=== PATIENT | female | born 1985 | race Caucasian/White ===

== ENCOUNTER → 2018-06-06 | Outpatient (CLI) | payer OTHER ==
[2018-06-06 13:51] LABS: BASOPHILS # (AUTO) 0.1 10^3/uL (0.0-0.1); BASOPHILS % (AUTO) 2.1 %; EOSINOPHILS # (AUTO) 0.2 10^3/uL (0.0-0.7); EOSINOPHILS % (AUTO) 3.8 %; HGB - HEMOGLOBIN 14.2 g/dL (12.0-16.0); LYMPHOCYTES # (AUTO) 1.3 10^3/uL (1.5-3.5); LYMPHOCYTES % (AUTO) 30.7 %; MEAN CORPUSCULAR HEMOGLOBIN 32.2 pg (27.0-31.0); MEAN CORPUSCULAR HGB CONC 34.1 g/dL (32.0-36.0); MEAN CORPUSCULAR VOLUME 94.4 fL (81.0-99.0); MEAN PLATELET VOLUME 8.4 fL (7.9-10.8); MONOCYTES # (AUTO) 0.4 10^3/uL (0.0-1.0); MONOCYTES % (AUTO) 9.8 %; NEUTROPHILS # (AUTO) 2.3 10^3/uL (1.5-6.6); NEUTROPHILS % (AUTO) 53.6 %; PLT - PLATELET COUNT 307 10^3/uL (130-450); RED BLOOD COUNT 4.41 10^6/uL (4.20-5.40); RED CELL DISTRIBUTION WIDTH 12.4 % (12.0-15.0); WHITE BLOOD COUNT 4.3 x10^3/uL (4.8-10.8)
[2018-06-06 14:13] LABS: THYROID STIMULATING HORMONE 1.27 uIU/mL (0.34-5.60)
[2018-06-06 14:15] LABS: HB2 TOTAL 15.2 g/dL; HEMOGLOBIN A1C 0.49 g/dL; HEMOGLOBIN A1C % 5.1 % (4.6-6.2)
[2018-06-06 14:16] LABS: ALBUMIN 4.5 g/dL (3.2-5.5); ALBUMIN/GLOBULIN RATIO 1.5 (1.0-2.2); ALKALINE PHOSPHATASE 64 IU/L (42-121); ALT ALANINE AMINOTRANSFERASE 19 IU/L (10-60); AST ASPARTATE AMINOTRANSFERASE 21 IU/L (10-42); BUN - BLOOD UREA NITROGEN 12 mg/dL (6-20); CALCIUM 9.1 mg/dL (8.5-10.3); CARBON DIOXIDE - CO2 25 mmol/L (21-32); CHLORIDE 105 mmol/L (101-111); CHOL/HDL RATIO 3.7 (<4.4); CHOLESTEROL 150 mg/dL; CREATININE 0.8 mg/dL (0.4-1.0); GFR - MDRD 84 (>89); GLUCOSE 96 mg/dL (70-100); HDL CHOLESTEROL 41 mg/dL; LDL CHOLESTEROL,CALCULATED 97 mg/dL; LDL/HDL RATIO 2.4 (<4.4); SODIUM 138 mmol/L (135-145); TOTAL PROTEIN 7.6 g/dL (6.7-8.2); VLDL CHOLESTEROL 12 mg/dL
== END ==
LOC: LAB.WCP 09:42
PROVIDERS: ATTEND Family Medicine
DX: Z13.1 Encounter for screening for diabetes mellitus (principal); F41.8 Other specified anxiety disorders; R53.83 Other fatigue; Z13.220 Encounter for screening for lipoid disorders
CPT/HCPCS: 36415; 80053; 80061; 82306; 82607; 82746; 83036; 83721; 84443; 85025

== ENCOUNTER 2019-06-30 12:46 | Outpatient (CLI) | payer OTHER ==
--- NOTE | 2019-07-01 17:29 | XRAY Report ---
Reason: Lumbar radiculopathy Procedure Date: 06/30/2019 Accession Number: [id number] / [id number] Procedure: XRN - SI Joints CPT Code: FULL RESULT: EXAM: SACROILIAC JOINT RADIOGRAPHY EXAM DATE: 06/30/2019 01:30 PM. CLINICAL HISTORY: Lumbar radiculopathy. COMPARISON: LUMBAR SPINE COMPLETE 06/30/2019 1:13 PM. TECHNIQUE: 3 views. FINDINGS: Bones: Normal. No fracture or bone lesion. Joints: The sacroiliac joints are normal. Soft Tissues: Normal. IMPRESSION: Normal sacroiliac joint radiography. [facility]
--- NOTE | 2019-07-01 17:29 | XRAY Report ---
Reason: SHOULDER PAIN Procedure Date: 06/30/2019 Accession Number: [id number] / [id number] Procedure: XRN - Shoulder 2 View RT CPT Code: FULL RESULT: EXAM: RIGHT SHOULDER RADIOGRAPHY EXAM DATE: 06/30/2019 01:30 PM. CLINICAL HISTORY: Shoulder pain. COMPARISON: None. TECHNIQUE: 2 views. FINDINGS: Bones: Normal. No fracture or bone lesion. Joints: The glenohumeral and acromioclavicular joints are normal. Soft tissues: The visualized hemithorax is unremarkable. No soft tissue swelling. IMPRESSION: Normal shoulder radiography. [facility]
--- NOTE | 2019-07-01 17:30 | XRAY Report ---
Reason: JOINT PAIN Procedure Date: 06/30/2019 Accession Number: [id number] / [id number] Procedure: XRN - Lumbar Spine Complete CPT Code: FULL RESULT: EXAM: LUMBOSACRAL SPINE RADIOGRAPHY EXAM DATE: 06/30/2019 01:30 PM. CLINICAL HISTORY: JOINT PAIN. COMPARISONS: None. TECHNIQUE: 5 views. FINDINGS: Alignment: Minimal less than 10 degrees upper lumbar dextrocurvature, partially visualized. No listhesis. Bones: Five [id number]-qvyprbb lumbar vertebral bodies are present. No fractures or bone lesions. Disks: Normal. Disk heights are maintained. Facets: No degenerative changes. Sacroiliac Joints: Unremarkable. Soft Tissues: Normal. The visualized bowel gas pattern is normal. IMPRESSION: 1. Minimal less than 10 degree upper lumbar dextrocurvature. 2. Otherwise normal-appearing lumbar spine exam. [facility]
== END 2019-06-30 12:47 | disposition home or self-care (01) ==
LOC: DI.N 12:46
PROVIDERS: ATTEND Family Medicine
DX: M54.16 Radiculopathy, lumbar region (principal); M25.511 Pain in right shoulder; M41.9 Scoliosis, unspecified
CPT/HCPCS: 72110; 72202

== ENCOUNTER 2019-07-14 07:06 | Outpatient (CLI) | payer OTHER ==
--- NOTE | 2019-07-14 10:51 | MRI Report ---
Reason: LUMBAR RADICULOPATHY Procedure Date: 07/14/2019 Accession Number: [id number] / [id number] Procedure: MRI - Lumbar Spine W/O CPT Code: FULL RESULT: MRI LUMBAR SPINE WITHOUT CONTRAST INDICATION: 33-year-old female. Chronic low back pain. Right hip and leg pain. TECHNIQUE: 1. Sagittal STIR, T1 and T2. 2. Axial T1 and T2. COMPARISON: None. FINDINGS: Radiographs(06/30/2019) have been reviewed, confirmed the presence of 5 [id number]-[id number] lumbar type vertebrae. Vertebral alignment is essentially normal. The lumbar disks are well hydrated and the disk space heights are maintained throughout. The marrow signal intensity appears normal throughout. There appears to be minor lipomatous change in the distal filum. However, there is no abnormal thickening of the filum and the conus terminates in appropriate fashion at the upper L1 level. Therefore, the possibility of spinal cord tethering is considered extremely unlikely. Axial images: T12-L1: No disk herniation. No spinal canal or foraminal stenosis. L1-L2: No disk herniation. No spinal canal or foraminal stenosis. L2-L3: No disk herniation. No spinal canal or foraminal stenosis. L3-L4: No disk herniation. No spinal canal or foraminal stenosis. L4-L5: No disk herniation. Suspect mild degenerative facet arthrosis. No bony hypertrophy. No spinal canal or foraminal stenosis. L5-S1: No disk herniation. Degenerative facet arthrosis with minimal bony hypertrophy. No spinal canal or foraminal stenosis. IMPRESSION: 1. There appears to be mild degenerative facet arthrosis in the lower lumbar spine (see above). There is no significant associated bony hypertrophy. 2. Otherwise unremarkable, unenhanced lumbar spine MRI. In particular, there is no evidence of disk herniation, spinal stenosis or neural impingement. Comment: No potential etiology for right hip and leg pain has been demonstrated.
== END 2019-07-14 07:07 | disposition home or self-care (01) ==
LOC: DI 07:06
PROVIDERS: ATTEND Family Medicine
DX: M54.16 Radiculopathy, lumbar region (principal)
CPT/HCPCS: 72148

== ENCOUNTER 2019-08-19 09:00 | Outpatient (CLI) | payer OTHER ==
--- NOTE | 2019-08-19 09:20 | XRAY Report ---
Reason: RT HIP PAIN Procedure Date: 08/19/2019 Accession Number: [id number] / [id number] Procedure: XRN - Hip w/Pelvis 2-3V RT CPT Code: FULL RESULT: EXAM: RIGHT HIP RADIOGRAPHY EXAM DATE: 08/19/2019 09:10 AM. CLINICAL HISTORY: RT HIP PAIN. COMPARISON: SACROILIAC JOINTS 06/30/2019 1:33 PM. TECHNIQUE: 2 views. FINDINGS: Bones: Normal. No fractures or bone lesion. Joints: Normal. No dislocation. The hip joint space is preserved. Soft Tissues: Normal. No soft tissue swelling. IMPRESSION: Normal hip radiography. [facility]
== END 2019-08-19 09:01 | disposition home or self-care (01) ==
LOC: DI.N 09:00
PROVIDERS: ATTEND Physician Assistant Medical
DX: M25.551 Pain in right hip (principal)

== ENCOUNTER 2019-09-14 21:49 | Emergency (ER) | payer OTHER ==
[2019-09-14 22:09] VITALS: BP 124/81
--- NOTE | 2019-09-14 22:44 | ED Physician Documentation ---
History of Present Illness - Stated complaint Stated Complaint: HIVES/RASH - Chief complaint Chief Complaint: Wound - Additonal information Additional information: This is a 33-year-old female presents with hives. Patient started two new anti- anxiety medications BuSpar and Wellbutrin around 10 days ago, and yesterday she began developing hives over her body. She will have some raised red red wheals over one part of her body which will grow and then fade, and she will have new lesions appear nearby. These have involved her legs, her arms, and the back of her neck. She has been very itchy despite taking 50 mg of Benadryl every 4-6 ho urs. She is also tried taking an Aveeno bath, this is not helped. Hydrocortisone cream gives her temporary relief but then her itching resumes. She denies any new allergic exposures, No new foods, detergents, soaps. Her medications are the only thing that have changed. Review of Systems Constitutional: denies: Fever Throat: denies: Oral lesions / sores Skin: reports: Rash PD PAST MEDICAL HISTORY - Past Medical History Musculoskeletal: Other (Arthritis) - Present Medications Home Medications: Ambulatory Orders Medication Instructions Recorded Confirmed Bupropion HCl [Wellbutrin Xl] 300 mg PO 09/14/19 busPIRone [Buspar] 10 mg PO BID 09/14/19 09/14/19 predniSONE [Prednisone] 40 mg PO DAILY #10 tablet 09/14/19 - Allergies Allergies/Adverse Reactions: Allergies Allergy/AdvReac Type Severity Reaction Status Date / Time pm medications Allergy Hives Uncoded 09/14/19 22:09 - Living Situation Living Situation: reports: With family Living Arrangement: reports: At home - Family History Family history: reports: Non contributory PD ED PE NORMAL - Vitals Vital signs reviewed: Yes - General General: Alert and oriented X 3 - HEENT HEENT: Other (Normal oropharynx without lesions, no swelling of the tongue or lips.) - Cardiac Cardiac: RRR - Respiratory Respiratory: No respiratory distress - Abdomen Abdomen: Normal bowel sounds, Soft, Non tender, Non distended - Derm Derm: Other (Over the extremities and the base the neck there are scattered raised erythematous wheals, these vary in size from 0.5cm to 5 cm in diameter, the edges are somewhat serpiginous. There are no blisters, areas of necrosis, or petechiae. The redness is blanchable.) - Neuro Neuro: Alert and oriented X 3 - Psych Psych: Normal mood, Normal affect Results - Vitals Vitals: Vital Signs - 24 hr 09/14/19 22:06 Temperature 36.8 C Heart Rate 95 Respiratory 18 Rate Blood Pressure 124/81 H O2 Saturation 99 Oxygen O2 Source Room air PD MEDICAL DECISION MAKING - ED course Complexity details: considered differential (Allergic reaction, urticaria, contact dermatitis, medication side effect) ED course: Patient presents with a classic case of urticaria, this appears to have started in response to new medication, and she has no other environmental exposures or changes to foods or detergents. She has no signs of mucous membrane involvement, airway compromise, or more serious illness as a cause of her rash at this time. Her vital signs are unremarkable. Given that she is refractory to benadryl we will treat with a burst of steroids, first dose of prednisone was given here. I discussed care with continued Benadryl, the prednisone, topical hydrocortisone cream if desired, and I also recommended close follow-up with her primary care provider. I also recommend that she stop her new medications. I discussed return precautions including fever, painful lesions, involvement of her mouth or mucous membranes, or any other concerning symptoms. Patient agreed with this plan and was discharged home. Departure - Departure Disposition: 01 Home, Self Care Clinical Impression: Urticaria Condition: Good Instructions: Urticaria Follow-Up: Aidan Stoddard PA-C [Primary Care Provider] - Within 1 week Prescriptions: predniSONE [Prednisone] 40 mg PO DAILY #10 tablet Comments: You were seen today for urticaria/hives. This is likely a reaction to your new medications, I recommend stopping these medications and considering restarting your Cymbalta. You can continue to take Benadryl 50 mg every 4-6 hours as needed for itching. You may also take the prednisone for the next 5 days as prescribed. If you develop any swelling of your lips or tongue, difficulty breathing, or rash with blisters or lesions in your mouth or mucous membranes, please return to the emergency department, as this is signs of a serious allergic reaction. Otherwise please follow-up with your primary care provider. Discharge Date/Time: 09/14/19 23:14
[2019-09-14] MEDS ORDERED: predniSONE 20 MG TABLET PO STA (23:03)
== END 2019-09-14 23:14 | disposition home or self-care (01) ==
LOC: ED 21:49
DX: L50.9 Urticaria, unspecified (principal)
CPT/HCPCS: 99282; 99284; J7512

== ENCOUNTER 2019-12-19 21:45 | Emergency (ER) | payer OTHER ==
--- NOTE | 2019-12-19 22:04 | ED Physician Documentation ---
History of Present Illness - Stated complaint Stated Complaint: ABD/BACK PAIN, RASH ON NECK AND ARMS - Chief complaint Chief Complaint: Abd Pain - History obtained from History obtained from: Patient (Patient is a 34-year-old female who presents with what she is describing is severe epigastric pain that radiates to her back without syncope she reports she will have episodes with the last about 2 hours she denies having any previous similar episodes. She did not denies any dark urine flank pain or hematuria or any jaundice-like symptoms.She denies any fevers chills or night sweats she denies any diarrhea or constipation.Patient reports that her pain is worse after eating. The patient also reports a mild rash without shortness of breath or any facial swelling.), Friend Review of Systems Constitutional: reports: Reviewed and negative Eyes: reports: Reviewed and negative Ears: reports: Reviewed and negative Nose: reports: Reviewed and negative Throat: reports: Reviewed and negative Cardiac: reports: Reviewed and negative Respiratory: reports: Reviewed and negative GI: reports: Abdominal Pain, Nausea, Vomiting : reports: Reviewed and negative Skin: reports: Rash Musculoskeletal: reports: Reviewed and negative Neurologic: reports: Reviewed and negative Psychiatric: reports: Reviewed and negative Endocrine: reports: Reviewed and negative Immunocompromised: reports: Reviewed and negative PD PAST MEDICAL HISTORY - Past Medical History Psych: Anxiety Musculoskeletal: Other (Arthritis) - Past Surgical History Past Surgical History: Yes - Present Medications Home Medications: Ambulatory Orders Medication Instructions Recorded Confirmed DULoxetine [Cymbalta] 30 mg PO DAILY 12/19/19 12/19/19 - Allergies Allergies/Adverse Reactions: Allergies Allergy/AdvReac Type Severity Reaction Status Date / Time pm medications Allergy Hives Uncoded 12/19/19 22:01 - Social History Does the pt smoke?: No Smoking Status: Never smoker Does the pt drink ETOH?: No Does the pt have substance abuse?: No - Immunizations Immunizations are current?: Yes PD ED PE NORMAL - Vitals Vital signs reviewed: Yes - General General: Alert and oriented X 3, No acute distress - HEENT HEENT: PERRL - Neck Neck: Supple, no meningeal sign - Cardiac Cardiac: RRR, No murmur - Respiratory Respiratory: Clear bilaterally - Abdomen Abdomen: Other (The abdomen soft there is diffuse tenderness throughout the abdomen there is no guarding no rebounding no hepatosplenomegaly no CVA tenderness there is no midline abdominal pulsatile mass there is negative Rossi sign neck of Rovsing's negative psoas negative McBurney's point.) - Derm Derm: Warm and dry, Other (There were some scattered hives on the anterior chest but there is no involvement of mucous membranes or the head or neck.) - Extremities Extremities: No deformity - Neuro Neuro: Alert and oriented X 3 - Psych Psych: Normal mood, Normal affect Results - Vitals Vitals: Vital Signs - 24 hr 12/19/19 21:49 Temperature 36.4 C L Heart Rate 92 Respiratory 18 Rate Blood Pressure 133/91 H O2 Saturation 100 Oxygen O2 Source Room air - Labs Labs: Laboratory Tests 12/19/19 12/19/19 12/19/19 22:35 22:38 22:38 WBC 8.9 RBC 4.69 Hgb 14.8 Hct 43.2 MCV 92.1 MCH 31.6 H MCHC 34.3 RDW 12.1 Plt Count 328 MPV 9.1 Neut # (Auto) 4.9 Lymph # (Auto) 2.8 [place] # (Auto) 0.7 Eos # (Auto) 0.5 Baso # (Auto) 0.0 Absolute Nucleated RBC 0.00 Nucleated RBC % 0.0 Sodium 136 Potassium 3.5 Chloride 101 Carbon Dioxide 25 Anion Gap 10.0 BUN 12 Creatinine 0.9 Estimated GFR (MDRD) 72 L Glucose 105 H Lactic Acid Calcium 9.2 Total Bilirubin 0.6 AST 18 ALT 14 Alkaline Phosphatase 64 Total Protein 7.8 Albumin 4.7 Globulin 3.1 Albumin/Globulin Ratio 1.5 Lipase 44 Urine Color YELLOW Urine Clarity CLEAR Urine pH 7.0 Ur Specific [place] 1.020 Urine Protein NEGATIVE Urine Glucose (UA) NEGATIVE Urine Ketones TRACE Urine Occult Blood NEGATIVE Urine Nitrite NEGATIVE Urine Bilirubin NEGATIVE Urine Urobilinogen 0.2 (NORMAL) Ur Leukocyte Esterase NEGATIVE Ur Microscopic Review NOT INDICATED Urine Culture Comments NOT INDICATED Urine HCG, Qual NEGATIVE 12/19/19 22:38 WBC RBC Hgb Hct MCV MCH MCHC RDW Plt Count MPV Neut # (Auto) Lymph # (Auto) [place] # (Auto) Eos # (Auto) Baso # (Auto) Absolute Nucleated RBC Nucleated RBC % Sodium Potassium Chloride Carbon Dioxide Anion Gap BUN Creatinine Estimated GFR (MDRD) Glucose Lactic Acid 0.9 Calcium Total Bilirubin AST ALT Alkaline Phosphatase Total Protein Albumin Globulin Albumin/Globulin Ratio Lipase Urine Color Urine Clarity Urine pH Ur Specific [place] Urine Protein Urine Glucose (UA) Urine Ketones Urine Occult Blood Urine Nitrite Urine Bilirubin Urine Urobilinogen Ur Leukocyte Esterase Ur Microscopic Review Urine Culture Comments Urine HCG, Qual PD MEDICAL DECISION MAKING - ED course Complexity details: re-evaluated patient (Well-appearing, nontoxic and nonseptic appearing patient requested to be discharged home at this time.), d/w patient Departure - Departure Disposition: Home, Self Care Clinical Impression: Rash Abdominal pain Qualifiers: Abdominal location: generalized Qualified Code(s): R10.84 - Generalized abdominal pain Condition: Good Instructions: ED Abdominal Pain Unkn Cause Follow-Up: Aidan Stoddard PA-C [Primary Care Provider] - Tomorrow
[2019-12-19] MEDS ORDERED: FAMOTIDINE 20 MG/2 ML VIAL IVP STA (22:25)
[2019-12-19] MEDS ORDERED: SODIUM CHLORIDE 0.9% 1,000 ML IV ONE (22:25)
[2019-12-19] MEDS ORDERED: MORPHINE 2 MG/ML CARPUJECT IVP STA (22:25)
[2019-12-19] MEDS ORDERED: ONDANSETRON 4 MG/2 ML VIAL IVP STA (22:25)
[2019-12-19 22:43] LABS: BASOPHILS % (AUTO) 0.2 %; EOSINOPHILS # (AUTO) 0.5 10^3/uL (0.0-0.7); EOSINOPHILS % (AUTO) 5.1 %; HGB - HEMOGLOBIN 14.8 g/dL (12.0-16.0); LYMPHOCYTES # (AUTO) 2.8 10^3/uL (1.5-3.5); LYMPHOCYTES % (AUTO) 31.9 %; MEAN CORPUSCULAR HEMOGLOBIN 31.6 pg (27.0-31.0); MEAN CORPUSCULAR HGB CONC 34.3 g/dL (32.0-36.0); MEAN CORPUSCULAR VOLUME 92.1 fL (81.0-99.0); MEAN PLATELET VOLUME 9.1 fL (7.9-10.8); MONOCYTES # (AUTO) 0.7 10^3/uL (0.0-1.0); MONOCYTES % (AUTO) 7.6 %; NEUTROPHILS # (AUTO) 4.9 10^3/uL (1.5-6.6); NEUTROPHILS % (AUTO) 54.6 %; PLT - PLATELET COUNT 328 10^3/uL (130-450); RED BLOOD COUNT 4.69 10^6/uL (4.20-5.40); RED CELL DISTRIBUTION WIDTH 12.1 % (12.0-15.0); WHITE BLOOD COUNT 8.9 x10^3/uL (4.8-10.8)
[2019-12-19] MEDS ORDERED: diphenhydrAMINE INJ 50 MG/ML VIAL IVP STA (22:43)
[2019-12-19 22:49] LABS: BILIRUBIN,URINE NEGATIVE (NEGATIVE); GLUCOSE, URINE (UA) NEGATIVE (NEGATIVE); KETONES,URINE (UA) TRACE mg/dL (NEGATIVE); LEUKOCYTE ESTERASE, URINE NEGATIVE (NEGATIVE); NITRITE,URINE NEGATIVE (NEGATIVE); OCCULT BLOOD,URINE NEGATIVE (NEGATIVE); PROTEIN,URINE NEGATIVE (NEGATIVE); UROBILINOGEN,URINE 0.2 (NORMAL) E.U./dL (NORMAL)
[2019-12-19] MEDS ORDERED: LIDOCAINE VISCOUS 2% 15 ML UDC MM STA (22:52)
[2019-12-19] MEDS ORDERED: MAG HYDROX/AL HYDROX/SIMETH 30 ML UDC PO STA (22:52)
[2019-12-19 22:55] LABS: ALBUMIN 4.7 g/dL (3.2-5.5); ALBUMIN/GLOBULIN RATIO 1.5 (1.0-2.2); BILIRUBIN,TOTAL 0.6 mg/dL (0.2-1.0); CALCIUM 9.2 mg/dL (8.5-10.3); CREATININE 0.9 mg/dL (0.4-1.0); TOTAL PROTEIN 7.8 g/dL (6.7-8.2)
[2019-12-19] MEDS ORDERED: GI COCKTAIL 120 ML BOTTLE PO ONE (23:00)
[2019-12-19 23:08] LABS: CLARITY,URINE CLEAR (CLEAR); HCG UR QUAL NEGATIVE
[2019-12-19 23:52] VITALS: BP 136/72
== END 2019-12-19 23:59 | disposition home or self-care (01) ==
LOC: ED 21:45
DX: R10.84 Generalized abdominal pain (principal); R21 Rash and other nonspecific skin eruption
CPT/HCPCS: 36415; 80053; 81003; 81025; 83605; 83690; 85025; 96361; 96374; 96375; 99284; 99285; A9270; J1200; 81001; 87086